=== PATIENT | male | born 1955 | race Hispanic/Latino ===

== ENCOUNTER 2022-01-25 20:00 | Emergency (ER) | payer BC, MEDICARE ==
[2022-01-25] MEDS ORDERED: Acetaminophen 500 MG TAB ONE ×2 (21:05)
== END 2022-01-25 21:58 | disposition home or self-care (01) ==
LOC: ERS 20:00
DX: M17.12 Unilateral primary osteoarthritis, left knee (principal)

== ENCOUNTER 2022-02-05 23:50 | Emergency (ER) | payer MEDICARE ==
[2022-02-06 02:03] LABS: #Eosinphils 0.2 thou/uL (0.0-0.7); #Monocytes 0.6 thou/uL (0.11-0.59); #Neutrophils 2.8 thou/uL (1.40-6.50); %Basophils 0.3 % (0.0-1.0); %Eosinophils 4.1 % (0.0-10.0); %Monocytes 11.3 % (0.0-10.0); %Neutrophils 49.3 % (42.0-75.0); Hemoglobin 14.2 g/dL (14.0-18.0); Mean Corpuscular Hemoglobin 33.8 pg (27.0-31.0); Mean Corpuscular Volume 99.6 fL (78.0-98.0); Mean Platelet Volume 6.9 fL (7.4-10.4); Platelet Count 215 thou/uL (130-400); RBC Distribution Width 12.1 % (11.5-14.5); Red Blood Cell (RBC) Count 4.21 mill/uL (4.70-6.10); White Blood Cell (WBC) Count 5.7 thou/uL (4.8-10.8)
[2022-02-06 02:21] LABS: Anion Gap 11 mmol/L (10-20); BUN (Urea Nitrogen) 18 mg/dL (8.4-25.7); Calc. Creatinine Clearance 0 mL/min (70-130); Carbon Dioxide 25 mmol/L (23-31); Chloride 105 mmol/L (98-107); Glucose 101 mg/dL (80-115); Potassium 3.9 mmol/L (3.5-5.1); Sodium 137 mmol/L (136-145)
== END 2022-02-06 02:56 | disposition home or self-care (01) ==
LOC: ERS 23:50
DX: F43.0 Acute stress reaction (principal); F41.9 Anxiety disorder, unspecified
CPT/HCPCS: 36415; 80048; 85025; 99283

== ENCOUNTER 2023-03-16 16:29 | Emergency (ER) | payer MEDICARE ==
[~2023-03-16 16:29] MED LIST: Iopamidol-370 76% 500 ML MDV (1 ML CHARGE) ONE
[2023-03-16 17:15] LABS: #Eosinphils 0.2 thou/uL (0.0-0.7); #Monocytes 0.8 thou/uL (0.11-0.59); #Neutrophils 3.2 thou/uL (1.40-6.50); %Basophils 0.5 % (0.0-1.0); %Lymphocytes 30.7 % (21.0-51.0); %Monocytes 13.1 % (0.0-10.0); %Neutrophils 52.4 % (42.0-75.0); Hemoglobin 14.7 g/dL (14.0-18.0); Mean Corpuscular HGB CONC 34.2 g/dL (32.0-36.0); Mean Corpuscular Hemoglobin 33.1 pg (27.0-31.0); Mean Corpuscular Volume 96.8 fl (78.0-98.0); Mean Platelet Volume 9.6 fL (7.4-10.4); Platelet Count 207 10x3/uL (130-400); RBC Distribution Width 13.1 % (11.5-14.5); Red Blood Cell (RBC) Count 4.44 mill/uL (4.70-6.10); White Blood Cell (WBC) Count 6.1 10x3/uL (4.8-10.8)
[2023-03-16 17:26] LABS: PTT 30.4 sec (22.9-36.1); Prothrombin Time 13.4 sec (12.0-14.7)
[2023-03-16] MEDS ORDERED: Dicyclomine 20 MG TAB ONE (17:51)
[2023-03-16 18:33] LABS: ALT (SGPT) 16 U/L (8-55); AST (SGOT) 17 U/L (5-34); Albumin 4.1 g/dL (3.4-4.8); Alkaline Phosphatase 67 U/L (40-110); BUN (Urea Nitrogen) 20 mg/dL (8.4-25.7); Bilirubin, Total 0.2 mg/dL (0.2-1.2); Calc. Creatinine Clearance 0 mL/min (70-130); Calcium 9.4 mg/dL (7.8-10.44); Carbon Dioxide 22 mmol/L (23-31); Chloride 106 mmol/L (98-107); Estimated GFR 83; Globulin 3.1 g/dL (2.4-3.5); Glucose 130 mg/dL (80-115); Lipase 54 U/L (8-78); Potassium 4.1 mmol/L (3.5-5.1); Protein, Total 7.2 g/dL (5.8-8.1); Sodium 139 mmol/L (136-145)
[2023-03-16 18:58] LABS: Anion Gap 15 mmol/L (10-20)
== END 2023-03-16 19:42 | disposition home or self-care (01) ==
LOC: ERS 16:29
DX: K92.1 Melena (principal); R10.30 Lower abdominal pain, unspecified
CPT/HCPCS: 36415; 74177; 80053; 82274; 83690; 85025; 85610; 85730; 86850; 86900; 86901; 93005; Q9967

== ENCOUNTER 2023-03-30 22:31 | Emergency (ER) | payer MEDICARE ==
[2023-03-31] MEDS ORDERED: Oxymetazoline HCl 0.05% (30 ML BOT) ONE (00:12)
== END 2023-03-31 02:11 | disposition home or self-care (01) ==
LOC: ERS 22:31
DX: R05.9 Cough, unspecified (principal)
CPT/HCPCS: 71046

== ENCOUNTER 2024-01-28 17:33 | Emergency (ER) | payer MEDICARE ==
[2024-01-28 19:44] LABS: Bacteria/HPF None Seen HPF (None Seen); Bilirubin Negative (Negative); Blood, Urine Negative (Negative); CAUTI Indications for Culture Dysuria,urgency,freq; Clarity Clear (Clear); Glucose, Urine (Dipstick) Normal (Negative); Ketone, Urine Negative (Negative); Leukocyte Negative Leu/uL (Negative); Nitrite Negative (Negative); Protein, Urine (Dipstick) Negative (Neg-Trace); RBC/HPF 0-3 HPF (0-3); Specific Gravity, Urine 1.008 (1.002-1.036); Squamous Epithelial 0-3 HPF (0-3); Urobilinogen Normal mg/dL (Less than 2); WBC/HPF 0-3 HPF (0-3)
[2024-01-28 19:45] LABS: Urine Culture Reflex No No
[2024-01-28] MEDS ORDERED: Oxybutynin 5 MG TAB PO SCH (21:00)
== END 2024-01-28 21:27 | disposition home or self-care (01) ==
LOC: ERS 17:33
DX: N32.89 Other specified disorders of bladder (principal)
CPT/HCPCS: 36416; 81001; 99283

== ENCOUNTER 2025-04-19 08:38 | Outpatient (CLI) | payer OTHER ==
[2025-04-19] MEDS ORDERED: Iopamidol 370 76% 100 ML VIAL ONE (11:58)
== END 2025-04-19 08:39 | disposition home or self-care (01) ==
LOC: CT 08:38
PROVIDERS: ATTEND Family Medicine
DX: D64.9 Anemia, unspecified (principal); R31.9 Hematuria, unspecified
CPT/HCPCS: 74178; Q9967

== ENCOUNTER 2025-06-08 12:34 | Outpatient (CLI) | payer OTHER | END 2025-06-08 12:35 | disposition home or self-care (01) | LOC: SCSRAD 12:34 | PROVIDERS: ATTEND Student in an Organized Health Care Education/Training Program | DX: M24.811 Other specific joint derangements of right shoulder, not elsewhere classified (principal); M75.121 Complete rotator cuff tear or rupture of right shoulder, not specified as traumatic; M62.511 Muscle wasting and atrophy, not elsewhere classified, right shoulder; S43.401A Unspecified sprain of right shoulder joint, initial encounter; S46.211A Strain of muscle, fascia and tendon of other parts of biceps, right arm, initial encounter; S46.811A Strain of other muscles, fascia and tendons at shoulder and upper arm level, right arm, initial encounter ==